=== PATIENT | male | born 1970 | race Caucasian/White ===

== ENCOUNTER → 2018-07-22 | Outpatient (CLI) | payer BC ==
--- NOTE | 2018-07-22 22:28 | MR ---
EXAMINATION TYPE: MR shoulder RT wo con DATE OF EXAM: 07/22/2018 COMPARISON: Outside radiographs 06/27/2018 HISTORY: 47-year-old male Pain in right shoulder TECHNIQUE: Multiplanar, multisequence imaging of the right shoulder is performed without contrast. FINDINGS: There is abnormal signal within the intracapsular portion of the long head biceps tendon. The extraca psular portion remaining appropriately situated along the bicipital groove. Heterogeneous signal of the subscapularis tendon which otherwise remains intact. Moderate to severe degenerative joint space narrowing with marginal spurring and capsular hypertrophy at the acromioclavicular joint with inferior spurring contacting the underlying myotendinous junctio n of the supraspinatus. There is a trace effusion within the subacromial/subdeltoid bursa with patchy inhomogeneity throughou t the supraspinatus and infraspinatus tendon. Bursal sided fraying of the supraspinatus tendon. No hi gh-grade partial or full-thickness tear of either supraspinatus or infraspinatus tendons. Mild fatty streaks within the teres minor muscle belly. Otherwise, no atrophy of the rotator cuff mus culature. There is a tear of the superior labrum extending from the biceps anchor back in around. Tear may exte nd nearly circumferentially around back inferiorly to the anterior inferior quadrant where a 6 mm par alabral cyst in noted. Mild glenoid dysplasia is noted with a slightly shallow posterior inferior gle noid rim. There is posterior humeral head cartilage thinning. No Hill-Sachs deformity or os acromiale. No suspicious bone marrow replacement. IMPRESSION: 1. Diffuse rotator cuff tendinosis with bursal sided fraying of the supraspinatus tendon. No high-gra de partial or full-thickness rotator cuff tear. 2. Mild fatty streaks within the teres minor muscle. No other rotator cuff muscle atrophy. Findings m ay represent early changes of quadrilateral space syndrome. 3. SLAP tear. Tear appears to extend more than 180 degrees back and around to the level of the anteri or-inferior glenoid where a 6 mm paralabral cyst is noted. 4. Mild degenerative changes along the posterior glenohumeral joint. Moderate to severe AC joint OA w ith mild subacromial impingement and mild bursitis. 5. Abnormal signal within the intracapsular portion of the long head biceps tendon could represent te ndinosis or partial tear.
== END | disposition home or self-care (01) ==
LOC: RADMRIMAIN 14:34
PROVIDERS: ATTEND Orthopaedic Surgery
DX: S43.491A Other sprain of right shoulder joint, initial encounter (principal); M75.81 Other shoulder lesions, right shoulder; M19.011 Primary osteoarthritis, right shoulder; M25.811 Other specified joint disorders, right shoulder; M75.51 Bursitis of right shoulder

== ENCOUNTER → 2018-09-17 | Outpatient (CLI) | payer BC ==
[2018-09-17 15:06] LABS: Potassium 4.3 mmol/L (3.5-5.1)
[2018-09-17 15:15] LABS: Basophils % (A) 0 %; Eosinophils # (A) 0.2 k/uL (0-0.7); Eosinophils % (A) 3 %; HCT 43.7 % (39.0-53.0); HGB 14.8 gm/dL (13.0-17.5); Lymphocytes # (A) 1.8 k/uL (1.0-4.8); Lymphocytes % (A) 33 %; MCH 29.6 pg (25.0-35.0); MCV 87.1 fL (80.0-100.0); Mean Platelet Volume 6.6; Monocytes # (A) 0.2 k/uL (0-1.0); Monocytes % (A) 4 %; Neutrophils # (A) 3.1 k/uL (1.3-7.7); Neutrophils % (A) 57 %; Platelet Count 180 k/uL (150-450); RBC 5.02 m/uL (4.30-5.90); RDW 13.1 % (11.5-15.5); WBC 5.5 k/uL (3.8-10.6)
== END | disposition home or self-care (01) ==
LOC: LABPAT 14:35
PROVIDERS: ATTEND Orthopaedic Surgery
DX: Z01.812 Encounter for preprocedural laboratory examination (principal); M75.41 Impingement syndrome of right shoulder
CPT/HCPCS: 80051; 85025

== ENCOUNTER 2018-09-18 06:37 | Day surgery (SDC) | payer BC ==
[2018-09-16 12:06] VITALS: BMI 26.6
--- NOTE | 2018-09-17 12:14 | HP ---
HISTORY AND PHYSICAL Silvio Conklin is a 47-year-old patient seen with progressive right shoulder pain. We discussed treatment options. He elected to proceed with arthroscopy. Consent was obtained. PAST MEDICAL HISTORY: Noncontributory. PAST SURGICAL HISTORY: Noncontributory. DAILY MEDICATIONS: None. ALLERGIES: None reported. SOCIAL HISTORY: He denies tobacco use. PHYSICAL EVALUATION RIGHT SHOULDER: Flexion 160 degrees, abduction 150 degrees, external rotation is 45-50 degrees with some weakness, tenderness along the anterior lateral acromion rotator cuff insertion site. Impingement signs positive at 100. Distal neurovascular exam is intact. RADIOGRAPHS OF THE RIGHT SHOULDER: Revealed a type 2 anterior acromion, evidence for acromioclavicular joint osteoarthritis and cystic changes of the greater tuberosity. An MRI of the right shoulder revealed acromioclavicular joint osteoarthritis, partial rotator cuff tear, and partial labral tear. IMPRESSION: Right shoulder impingement with partial rotator cuff tear and acromioclavicular joint osteoarthritis. PLAN: Right shoulder arthroscopy with subacromial decompression, possible arthroscopic rotator cuff repair, probable Rom procedure and debridement. MMODL / IJN: [id number] /
[~2018-09-18 06:37] MED LIST: ceFAZolin IN SWFI 2 GM/20 ML SYRINGE IVP ONE
[2018-09-18] MEDS ORDERED: SCOPOLAMINE 1.5MG/72HR PATCH TRANSDERM ONE (06:40)
[2018-09-18] MEDS ORDERED: DEXAMETHASONE SOD PHOSPHATE 10 MG/ML 1 ML VIAL IV ONE (06:40)
[2018-09-18] MEDS ORDERED: LACTATED RINGERS 1,000 ML IV SCH (06:40)
[2018-09-18] MEDS ORDERED: LIDOCAINE 1% 20 ML VIAL (10MG/ML) FOR IV START INTRADERMA PRN (06:40)
[2018-09-18] MEDS ORDERED: HYDROmorphone 0.5 MG/0.5 ML SYRINGE IVP PRN (06:40)
[2018-09-18] MEDS ORDERED: ONDANSETRON 4 MG/2 ML VIAL IVP ONE ×2 (06:40→12:03)
[2018-09-18] MEDS ORDERED: MIDAZOLAM 2 MG/2 ML VIAL IV ONE (07:45)
[2018-09-18] MEDS ORDERED: fentaNYL (PF) 50 MCG/ML 2 ML AMP IV ONE (07:45)
[2018-09-18] MEDS ORDERED: ROPIVACAINE 5 MG/ML 30 ML VIAL ONE (08:21)
[2018-09-18] MEDS ORDERED: LIDOCAINE 1% INJ 10MG/ML (20 ML MDV) ONE (08:21)
[2018-09-18] MEDS ORDERED: NEOSTIGMINE 1 MG/ML 10 ML VIAL ONE (08:21)
[2018-09-18] MEDS ORDERED: fentaNYL (PF) 50 MCG/ML 2 ML AMP ONE (08:21)
[2018-09-18] MEDS ORDERED: PROPOFOL 10 MG/ML 20 ML VIAL IV ONE (08:21)
[2018-09-18] MEDS ORDERED: ePHEDrine SULFATE/0.9% NACL/PF 50 MG/5 ML SYRINGE IV ONE (08:21)
[2018-09-18] MEDS ORDERED: GLYCOPYRROLATE 0.2 MG/ML 2 ML VIAL ONE (08:21)
[2018-09-18] MEDS ORDERED: ROCURONIUM BROMIDE 10 MG/ML 10 ML VIAL IV ONE (08:21)
[2018-09-18] MEDS ORDERED: MIDAZOLAM 2 MG/2 ML VIAL ONE (08:21)
--- NOTE | 2018-09-18 09:58 | P.OP ---
Date of Procedure: 09/18/18 Preoperative Diagnosis: Right shoulder impingement Postoperative Diagnosis: 1. Right shoulder impingement 2. Right shoulder partial rotator cuff tear 3. Right shoulder acromioclavicular joint osteoarthritis 4. 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 Right shoulder arthroscopic subacromial decompression 2. Right shoulder arthroscopic debridement partial rotator cuff tear 3. Right shoulder arthroscopic Rom procedure 4. Right shoulder arthroscopic chondroplasty glenoid Anesthesia: GETA, regional (Interscalene block) Surgeon: Sohan Gomes Estimated Blood Loss (ml): 10 Pathology: none sent Condition: stable Disposition: PACU Indications for Procedure: 47-year-old patient seen with progressive right shoulder pain. After treatment options were discussed, he elected to proceed with arthroscopy. Operative Findings: see description of procedure Description of Procedure: Patient underwent an interscalene block by department of anesthesia. The patient was then taken to the operative suite. The patient underwent a general anesthetic by the department of anesthesia. The patient was placed into a lateral position and secured. There was appropriate padding of the bony prominence. Right shoulder was then prepped and draped in normal sterile orthopedic fashion. We placed the extremity in 10 pounds of longitudinal traction. A posterior incision was now made for a posterior working portal site. The trocar and cannula were inserted into the glenohumeral joint. Arthroscopy was initiated. Spinal needle was now inserted anteriorly, to ascertain the anterior working portal site. An incision was now made in that area, a trocar was inserted followed by a probe. There was a very small area of partial tearing long head biceps tendon near the insertion site. There was no hyperemia. There was a central area of the glenoid had grade 1/2 chondromalacia small osteochondral flap tear. The humeral head appeared unremarkable. I performed a chondroplasty of the glenoid gained down to stable tissue. There was probed and found to be stable. Instruments removed from the glenohumeral joint. Utilizing the posterior working portal site, the trocar and cannula were inserted into the subacromial space. Arthroscopy initiated. I made an incision 2 fingerbreadths lateral to the acromion. I introduced my trocar followed by my ArthroCare ablator. I now began ablating thick subacromial bursal tissue, which exposed the undersurface of the anterior acromion. There was diminished subacromial space. There was a very prominent anterior acromion. A motorized bur was introduced and a subacromial decompression was performed. I also excised some osteophytes off the inferior aspect of the distal clavicle. The AC joint was visualized and noted to be fairly arthritic. The motorized bur was introduced in the anterior portal site and a Rom procedure was performed without difficulty, decompressing the AC joint nicely. I turned my attention to the rotator cuff. There appeared be some partial tearing along the anterior fibers of the supraspinatus insertion site. I debrided that area getting down to stable tendon tissue. I thoroughly probed the area and did not find any evidence for perforation. I injected 1 mL Renue intra-articular Instruments now removed from the portal sites. All portal sites were approximated with nylon suture. Sterile dressings were applied followed by a shoulder sling. The patient was awakened, transferred to a bed, and taken to recovery in stable condition.
[2018-09-18 10:09] VITALS: TEMP 97.2
[2018-09-18] MEDS ORDERED: LACTATED RINGERS 1,000 ML IV ONE ×2 (10:11)
--- NOTE | 2018-09-18 10:32 | P.ONQ ---
Anesthesiology Proc Note - PNB - Peripheral Nerve Block Performed Right Interscalene Single Time Out Performed: Yes Procedure Start Time: 07:46 Procedure Stop Time: 07:52 Indication: Requested by physician Specifically requested for management of pain by : Sohan Gomes Sedation Type: Sedate with meaningful contact maintained Preparation: Sterile Prep Position: Supine Needle Types: Other (see comment) (Pujunk) Needle Size: 50mm (2") Needle Gauge: 20 Technique: Ultrasound Injectate: 0.5% Ropivacaine (see comment for volume) (20 ml) Blood Aspirated: No Pain Paresthesia on Injection Noted: No Resistance on Injection: Normal Events: Uneventful and Well Tolerated
[2018-09-18 11:24] VITALS: RESP 18
[2018-09-18 11:44] VITALS: BP 112/62; PULSE 41
== END 2018-09-18 12:46 | disposition home or self-care (01) ==
LOC: OR 06:37
PROVIDERS: ATTEND Orthopaedic Surgery
DX: M75.101 Unspecified rotator cuff tear or rupture of right shoulder, not specified as traumatic (principal); M75.41 Impingement syndrome of right shoulder; M19.011 Primary osteoarthritis, right shoulder; M94.211 Chondromalacia, right shoulder; S46.111A Strain of muscle, fascia and tendon of long head of biceps, right arm, initial encounter; M25.711 Osteophyte, right shoulder
CPT/HCPCS: 29824; 29826; 29822; 64415; C1765; J2250; J1100; J2710; J2405; J2001; J3010; J2795; J2704; J0690